=== PATIENT | female | born 1935 | race Caucasian/White ===

== ENCOUNTER → 2016-09-02 | Outpatient (CLI) | payer MEDICARE, BC ==
[~2016-09-02] MED LIST: ATOR20TA65 PO; CHOL20003 PO; CITA10SO5 PO; HYDR-3498 PO; LANS15CA19 PO; TRAM50TA2 PO; VALA1000 PO; VALS320T11 PO; ZALE10CA PO
--- NOTE | 2016-09-02 10:43 | RADRPT ---
PROCEDURE: XR pelvis/left hip. CLINICAL INDICATION: Hip pain TECHNIQUE: AP pelvis/AP and lateral left hip views performed. COMPARISON: 06/14/2016 FINDINGS: There is a left total hip replacement. There is no evidence of loosening of the prosthesis. There is moderate right hip osteoarthrosis. This is associated with joint space narrowing, subchondr al sclerosis and osteophytosis. There is normal osseous mineralization. No fractures or osseous le sions are identified. The soft tissues are unremarkable. IMPRESSION: Left total hip replacement. Moderate right hip osteoarthrosis. RPTAT: [facility] .Will Aburto MD, Date Time Electronically viewed and signed by .Will Aburto MD, on 09/02/2016 10:43 .B/
== END | disposition home or self-care (01) ==
LOC: HKI 09:15
PROVIDERS: ATTEND Orthopaedic Surgery
DX: M51.16 Intervertebral disc disorders with radiculopathy, lumbar region (principal); Z96.642 Presence of left artificial hip joint
CPT/HCPCS: 73502; G0463